=== PATIENT | female | born 1955 | race Caucasian/White ===

== ENCOUNTER → 2017-08-17 | Outpatient (CLI) | payer OTHER ==
[~2017-08-17] MED LIST: AMIT-104 PO; AMIT-108 PO; ASCO1TAB5 PO; ASPI-1471 PO; ATE50 PO; ATEN-1 PO; CALC600T63 PO; CLO5 PO; FEN145 PO; FLU45SYR25 IM ONLY; LACT1CAP6 PO; METO100T20 PO; MULT1TAB54 PO; OMEP40CA45 PO; ONDA4TAB97 PO; OXYC-865 PO; PRE50 PO; PREG75CA60 PO; ROS10 PO; ROSU5TAB8 PO; SIMV10TA98 PO; UBID30CA27 PO; VENL75TA PO; VIT1CAPS9 OU; ZOLP-358 PO; ZOLP12.545 PO; ZOLP12.548 PO; [UNRECOGNIZED DRUG - CODE] PO
--- NOTE | 2017-08-18 14:19 | RADIOLOGY IMAGING REPORT ---
FACILITY: [facility] - [place] PATIENT NAME: RAJANI DENNIS : [id number] MR: [id number] V: [id number] EXAM DATE: [id number] ORDERING PHYSICIAN: ZONIA PORRAS TECHNOLOGIST: Lissa Sol PROCEDURE:BILATERAL DIGITAL SCREENING MAMMOGRAM WITH CAD ASSISTED INTERPRETATION AND 3D BREAST TOMOSYNTHESIS. COMPARISON:Prior mammograms dated 09/20/15, 07/27/14 and 01/05/12. INDICATIONS:SCREENING FINDINGS: Moderately dense heterogeneous fibroglandular tissue is seen throughout the breasts. The parenchymal pattern has remained stable when allowing for difference in mammographic technique and patient positioning. There is no evidence of malignant appearing mass, malignant appearing calcification or other secondary sign of malignancy in either breast. DIAGNOSTIC CATEGORY 2--BENIGN FINDING. RECOMMENDATIONS: ROUTINE MAMMOGRAM AND CLINICAL EVALUATION. IMPRESSION: Bi-RADS 2: No significant abnormality is seen. Images were reviewed with R2CAD and 3D breast tomosynthesis. Dictated by: Nida Stratton M.D. on 08/17/2017 at 17:08 Transcribed by: MARIANA on 08/17/2017 at 18:44 Approved by: Nida Stratton M.D. on 08/18/2017 at 14:18 [facility]
== END ==
LOC: MAMO 01:26
PROVIDERS: ATTEND Obstetrics & Gynecology
DX: Z12.31 Encounter for screening mammogram for malignant neoplasm of breast (principal)
CPT/HCPCS: 77063; 77067

== ENCOUNTER → 2017-12-20 | Outpatient (CLI) | payer OTHER ==
[~2017-12-20] MED LIST changes: +LISI-362 PO; +LISI20TA29 PO; +METO200T12 PO; +ROSU20TA13 PO; -[UNRECOGNIZED DRUG - CODE] PO
[2017-12-20 08:47] LABS: PLATELET COUNT, AUTOMATED 177 K/uL (150-450)
[2017-12-20 11:36] LABS: LDL CHOLESTEROL 90 mg/dl
== END ==
LOC: LAB 08:22
PROVIDERS: ATTEND Emergency Medicine
DX: I10 Essential (primary) hypertension (principal)
CPT/HCPCS: 36415; 82040; 82247; 82310; 82374; 82435; 82465; 82565; 82947; 83718; 84075; 84132; 84155; 84295; 84450; 84460; 84478; 84520; 85025

== ENCOUNTER 2018-07-18 11:15 | Outpatient (RCR) | payer OTHER ==
--- NOTE | 2018-06-29 17:31 | PT INITIAL EVALUATION ---
MEDICAL DIAGNOSIS: Lumbar and B SI pain and instability TREATMENT DIAGNOSIS: Lumbar and B SI pain and hypermobility DATE OF ONSET: 06/08/18 SUBJECTIVE: Hetal Win present to PT for long-term history of lumbar and SI pain, worsened after a backward fall onto bleachers 3 weeks ago. She denies radicular symptoms. She reports her hips will "twist" intermittently. She wonders if it's her mattress , but it's only four years old and firm. A foam mattress topper made her LBP worse in the morning. Pain location is L>R L-S, B SI's and described as ache in the morning, sharp grab with transfers. Pain scale is 6 on a ten point pain scale. Pain is worse with getting off the floor, sitting, kneeling at [facility], car, chair and bed transfers and better with standing and walking, better toward afternoon and evening (09/25). REHAB PROBLEM LIST: Increased Pain Decreased ROM Decreased Strength Decreased Function Increased Joint Mobility Altered Gait PREVIOUS MEDICAL HISTORY: Intermittent LBP, thyroid disorder. OCCUPATION: Retired accountant manager OBJECTIVE: Posture: Standing: R anterior and L posterior ilium creating apparent long R LE, apparent R lumbar, L thoracic scoliosis. Sitting: Level pelvic, no scoliosis. ROM: AROM lumbar spine WNL flexion with increased L2-4 vertebrae retro motion, extension 25%, pivots L3/4. PROM hips IR/ER at 90 deg. flexion: R 30/45, L 20/60 degrees. Strength: Core strength 3/5. Heel and toe walking WNL. Palpation: Tender at the R lower lumbar extensors Special Tests: Negative SLR, hip scour B. Mobility: Hypermobile L L4/5/S1 facets, mild L hip hypermobility with medial and inferior glides. Gait: Apparent long R LE, late heel strike B. ASSESSMENT: Hetal Win presents with L lumbar facet and L hip hypermobility affecting transitional movement changes and sitting, kneeling tolerance. I feel her higher morning pain is more from joint creep and not her mattress, so we may try an SI belt at night. For now, we'll begin with core stabilization and muscle balancing exercise, education, HEP. Short Term Goals 4 weeks: Hetal reports LBP first thing in the morning is 2/, transfers with beds, cars, chairs without LBP. 6 weeks: Hetal reports LBP is 0-1/10 with transfers, even pelvic alignment sitting and standing. Patient's Goals Hold alignment and resolve LBP. PLAN: Patient to be seen for Manual Therapy Strengthening/condition Range of Motion Spinal Stabilization Stretching Neuromuscular Re-ed Posture/Body mechanics Gait Trg/Balance Trg Home Exercise Program 2x/Week for 6 Weeks Thank you for this referral. If you have any questions, comments, or concerns about this report or plan, please contact me at . [facility]
[~2018-07-18 11:15] MED LIST changes: +LISI-374 PO; -ROSU20TA13 PO; +ROSU20TA5 PO
--- NOTE | 2018-07-18 17:19 | PT PLAN OF CARE ---
Physician: Dr. Javad Kyle Patient is being seen: 1-2x/week Therapist: Corinna Aj PT Medical Diagnosis: Lumbar and B SI pain and instability Treatment Diagnosis: Lumbar and B SI pain and hypermobility Date of Onset: 06/08/18 Date of Initial Evaluation: 06/29/18 Date patient was last seen: 07/18/18 Number of treatments: 4 Number of cancellations/No shows: 0 INTERVENTIONS: Spinal Stabilization, Home Exercise Program GOALS: 4 weeks: Hetal reports LBP first thing in the morning is 2/10, transfers with beds, cars, chairs without LBP. all met 6 weeks: Hetal reports LBP is 0-1/10 with transfers, even pelvic alignment sitting and standing. all met PATIENT'S GOAL: Hold alignment and resolve LBP. all met Patient Compliance: Excellent Prognosis: Excellent Reasons for discontinuing therapy: S: Hetal denies LBP with all activities and relates she's getting out of bed quickly, pain free. Posture: Standing and sitting: Level pelvic, no scoliosis. ROM: AROM lumbar spine WNL flexion with increased L2-4 vertebrae retro motion, extension WNL. Strength: Core strength 4-/5, strong core lock with all exercises. Palpation: Unremarkable at the R lower lumbar extensors Mobility: Normal mobility L L4/5/S1 facets. A/P: Hetal Win has done well with her core strengthening HEP to alleviate pain and improve spinal stability. She can continue with this program independently. I'll DC PT to HEP. Thank you. MARIA ISABEL
== END 2018-07-18 18:00 | disposition home or self-care (01) ==
LOC: PT 11:15
PROVIDERS: ATTEND Chiropractor
DX: M54.5 Low back pain (principal); M53.3 Sacrococcygeal disorders, not elsewhere classified
CPT/HCPCS: 97161

== ENCOUNTER → 2018-10-18 | Outpatient (CLI) | payer MEDICARE, OTHER ==
[~2018-10-18] MED LIST changes: +RANI150C17 PO
--- NOTE | 2018-10-19 13:39 | RADIOLOGY IMAGING REPORT ---
FACILITY: [facility] - [place] PATIENT NAME: RAJANI DENNIS : [id number] MR: [id number]: [id number] EXAM DATE: [id number] ORDERING PHYSICIAN: ZONIA PORRAS TECHNOLOGIST: Brenda Ko PROCEDURE:BILATERAL DIGITAL SCREENING MAMMOGRAM WITH CAD ASSISTED INTERPRETATION & 3D TOMOSYNTHESIS COMPARISON:Prior mammograms 08/17/17, 09/20/15, 07/27/14, 01/05/12. INDICATIONS:screening FINDINGS: The breasts are heterogeneously dense which can obscure small masses. The parenchymal pattern has remained stable allowing for difference in mammographic technique & patient positioning. DIAGNOSTIC CATEGORY 1--NEGATIVE. RECOMMENDATIONS: ROUTINE MAMMOGRAM AND CLINICAL EVALUATION. IMPRESSION: BIRADS 1: Negative. No significant abnormality is seen. Dictated by: Nida Stratton M.D. on 10/18/2018 at 16:51 Transcribed by: MARIA GUADALUPE on 10/19/2018 at 8:37 Approved by: Nida Stratton M.D. on 10/19/2018 at 13:37 [facility]
== END ==
LOC: MAMO 02:13
PROVIDERS: ATTEND Obstetrics & Gynecology
DX: Z12.31 Encounter for screening mammogram for malignant neoplasm of breast (principal)
CPT/HCPCS: 77063; 77067